=== PATIENT | male | born 1965 | race American Indian/Alaskan Native ===

== ENCOUNTER 2018-12-22 14:28 | Emergency (ER) | payer OTHER ==
[2018-12-22] MEDS ORDERED: LIDOCAINE 1% 20 ML MDV ONE (15:02)
[2018-12-22] MEDS ORDERED: TETANUS & DIPHTHERIA TOX,ADULT 0.5 ML VIAL ONE (15:02)
--- NOTE | 2018-12-22 15:21 | RAD REPORT ---
EXAM DESCRIPTION: CT - Head Brain Wo Cont - 12/22/2018 3:10 pm CLINICAL HISTORY: TRAUMA Trauma, head injury COMPARISON: No comparisons TECHNIQUE: All CT scans are performed using dose optimization technique as appropriate and may inclu de automated exposure control or mA/KV adjustment according to patient size. FINDINGS: No intracranial hemorrhage, hydrocephalus or extra-axial fluid collection.No areas of brai n edema or evidence of midline shift. The paranasal sinuses and mastoids are clear. The calvarium is intact. Left periorbital soft tissue s welling is seen. No vitreous abnormality identified. IMPRESSION: No acute intracranial abnormality.
--- NOTE | 2018-12-22 16:17 | ER ---
Nurse's Notes [facility] Name: Geoff Morrell Age: 53 yrs Sex: Male : 1965 Arrival Date: 12/22/2018 Time: 14:29 Bed 8 Private MD: Diagnosis: Laceration without foreign body of left eyelid and periocular area Presentation: 12/22 14:31 Presenting complaint: Patient states: My surfboard hit me in the left eye. Pt denies la1 vision loss. Denies LOC. Transition of care: patient was not received from another setting of care. Mechanism of Injury: resulted from surf board to eye. Onset of symptoms was December 22, 2018. Risk Assessment: Do you want to hurt yourself or someone else? Patient reports no desire to harm self or others. Initial Sepsis Screen: Does the patient meet any 2 criteria? No. Patient's initial sepsis screen is negative. Does the patient have a suspected source of infection? No. Patient's initial sepsis screen is negative. Care prior to arrival: None. 14:31 Method Of Arrival: Ambulatory la1 14:31 Acuity: JUAQUIN 2 la1 Triage Assessment: 15:25 General: Appears in no apparent distress. uncomfortable, Behavior is calm, cooperative, hj appropriate for age. Pain:. Neuro: Level of Consciousness is awake, alert, obeys commands, Reports headache. Historical: - Allergies: 14:32 No Known Allergies; la1 - PMHx: 14:32 None; la1 - Immunization history:: Adult Immunizations up to date. - Social history:: Smoking status: Patient/guardian denies using tobacco. - Ebola Screening: : No symptoms or risks identified at this time. Screenin:31 Abuse screen: Denies threats or abuse. Denies injuries from another. Nutritional hj screening: No deficits noted. Tuberculosis screening: No symptoms or risk factors identified. Fall Risk None identified. Assessment: 14:50 General: Appears in no apparent distress. uncomfortable, Behavior is calm, cooperative, hj appropriate for age. Pain: Complains of pain in lateral canthus of left eye and medial canthus of left eye and left lower eyelid and left supraorbital ridge and left outer canthus and left upper eyelid. Neuro: Level of Consciousness is awake, alert, obeys commands, Oriented to person, place, time, situation, Appropriate for age. Cardiovascular: Capillary refill < 3 seconds Patient's skin is warm and dry. Respiratory: Airway is patent Respiratory effort is even, unlabored, Respiratory pattern is regular, symmetrical. GI: No signs and/or symptoms were reported involving the gastrointestinal system. : No signs and/or symptoms were reported regarding the genitourinary system. EENT: No signs and/or symptoms were reported regarding the EENT system. Derm: Wound noted lateral canthus of left eye and medial canthus of left eye and left lower eyelid and left supraorbital ridge and left outer canthus and left upper eyelid. Musculoskeletal: No signs and/or symptoms reported regarding the musculoskeletal system. 15:30 Reassessment: Patient and/or family updated on plan of care and expected duration. Pain hj level reassessed. Patient is alert, oriented x 3, equal unlabored respirations, skin warm/dry/pink. provider in room for lac repair;. 16:31 Reassessment: Patient and/or family updated on plan of care and expected duration. Pain hj level reassessed. Patient is alert, oriented x 3, equal unlabored respirations, skin warm/dry/pink. wound care done, dressing applied on the L eye wrapped with raimundo wrap;. Vital Signs: 14:32 BP 153 / 85; Pulse 102; Resp 16; Temp 97.4; Pulse Ox 98% on R/A; Weight 74.84 kg; la1 Height 5 ft. 7 in. (170.18 cm); 16:31 BP 155 / 87; Pulse 92; Resp 18; Pulse Ox 100% on R/A; hj 14:32 Body Mass Index 25.84 (74.84 kg, 170.18 cm) la1 Visual Acuity: 14:46 Left Eye Visual acuity 20/30, Pupil size 4 mm, ; Right Eye Visual acuity 20/30, Pupil iw size 4 mm, ; Both Eyes Visual acuity 20/30; Without Lenses; Lanse Coma Score: 14:31 Eye Response: spontaneous(4). Verbal Response: oriented(5). Motor Response: obeys la1 commands(6). Total: 15. 16:07 Eye Response: spontaneous(4). Verbal Response: oriented(5). Motor Response: obeys jr8 commands(6). Total: 15. ED Course: 14:29 Patient arrived in ED. rg4 14:31 Patient has correct armband on for positive identification. Bed in low position. Call hj light in reach. Side rails up X 1. Adult w/ patient. 14:32 Triage completed. la1 14:33 Arm band placed on left wrist. la1 14:37 Albin Lopes PA is PHCP. jr8 14:37 Jeet Carroll MD is Attending Physician. jr8 15:08 Yosef Conley, RN is Primary Nurse. hj 15:11 CT Head Brain wo Cont In Process Unspecified. EDMS 15:13 CT completed. Patient tolerated procedure well. Patient moved back from CT. bq 16:31 No provider procedures requiring assistance completed. Patient did not have IV access hj during this emergency room visit. Administered Medications: 15:03 Drug: Tetanus-Diphtheria Toxoid Adult 0.5 ml {Sweeper Driver: [employer]. Exp: hj 09/27/2020. Lot #: [id number]. } Route: IM; Site: left deltoid; 15:32 Follow up: Response: No adverse reaction hj 15:33 Drug: Lidocaine (1 %) 1 vials Volume: 20 ml; Route: Infiltration; hj Outcome: 16:16 Discharge ordered by . jr8 16:31 Discharged to home ambulatory, with family. hj 16:31 Condition: stable 16:31 Discharge instructions given to patient, family, Instructed on discharge instructions, follow up and referral plans. medication usage, Demonstrated understanding of instructions, follow-up care, medications, Prescriptions given X 1. 16:32 Patient left the ED. hj Signatures: Dispatcher [employer] EDNM Rylie Oro Irene, RN RN iw Roszak, Josh, PA PA jr8 Phani Orlando RN RN laYosef Barry, Valeri Cleveland RN rg4
--- NOTE | 2018-12-22 16:17 | EDPHYS ---
Physician Documentation [facility] Name: Geoff Morrell Age: 53 yrs Sex: Male : 1965 Arrival Date: 12/22/2018 Time: 14:29 Bed 8 Private MD: ED Physician Jeet Carroll HPI: 12/22 16:07 This 53 yrs old Other Male presents to ER via Ambulatory with complaints of Head jr8 Injury-Adult. 16:07 The patient or guardian reports a laceration, pain, swelling. The complaints affect the jr8 face and left eye. Context of injury: The problem was sustained outdoors, resulted from a direct blow, surf board. Onset: The symptoms/episode began/occurred acutely, today. Associated signs and symptoms: The patient has no apparent associated signs or symptoms, Loss of consciousness: This patient did not experience any loss of consciousness. Severity of symptoms: At their worst the symptoms were moderate, in the emergency department the symptoms are unchanged. The patient has not experienced similar symptoms in the past. The patient has not recently seen a physician. Stated that he fell off of his surf board and it came back in hit him on the left eye and side of face. Denies LOC . Historical: - Allergies: 14:32 No Known Allergies; la1 - PMHx: 14:32 None; la1 - Immunization history:: Adult Immunizations up to date. - Social history:: Smoking status: Patient/guardian denies using tobacco. - Ebola Screening: : No symptoms or risks identified at this time. ROS: 16:07 ENT: Negative for injury, pain, and discharge, Neck: Negative for injury, pain, and jr8 swelling, Cardiovascular: Negative for chest pain, palpitations, and edema, Respiratory: Negative for shortness of breath, cough, wheezing, and pleuritic chest pain, Abdomen/GI: Negative for abdominal pain, nausea, vomiting, diarrhea, and constipation, Back: Negative for injury and pain, MS/Extremity: Negative for injury and deformity, Skin: Negative for injury, rash, and discoloration, Neuro: Negative for headache, weakness, numbness, tingling, and seizure. 16:07 Eyes: Positive for injury or acute deformity, pain, of the left upper eyelid and left outer canthus. Exam: 16:07 Head/Face: Normocephalic, atraumatic. ENT: Nares patent. No nasal discharge, no jr8 septal abnormalities noted. Tympanic membranes are normal and external auditory canals are clear. Oropharynx with no redness, swelling, or masses, exudates, or evidence of obstruction, uvula midline. Mucous membranes moist. Neck: Trachea midline, no thyromegaly or masses palpated, and no cervical lymphadenopathy. Supple, full range of motion without nuchal rigidity, or vertebral point tenderness. No Meningismus. Cardiovascular: Regular rate and rhythm with a normal S1 and S2. No gallops, murmurs, or rubs. Normal PMI, no JVD. No pulse deficits. Respiratory: Lungs have equal breath sounds bilaterally, clear to auscultation and percussion. No rales, rhonchi or wheezes noted. No increased work of breathing, no retractions or nasal flaring. Abdomen/GI: Soft, non-tender, with normal bowel sounds. No distension or tympany. No guarding or rebound. No evidence of tenderness throughout. Back: No spinal tenderness. No costovertebral tenderness. Full range of motion. Skin: Warm, dry with normal turgor. Normal color with no rashes, no lesions, and no evidence of cellulitis. MS/ Extremity: Pulses equal, no cyanosis. Neurovascular intact. Full, normal range of motion. Neuro: Awake and alert, GCS 15, oriented to person, place, time, and situation. Cranial nerves II-XII grossly intact. Motor strength 5/5 in all extremities. Sensory grossly intact. Cerebellar exam normal. Normal gait. 16:07 Eyes: Periorbital structures: swelling, that is moderate, on the left supraorbital ridge, left upper eyelid and left lower eyelid, ecchymosis, that is moderate, on the left supraorbital ridge, left upper eyelid, medial canthus of left eye, lateral canthus of left eye and left lower eyelid, laceration, that is deep, that is linear, on the left supraorbital ridge, left upper eyelid and lateral canthus of left eye, 2 lacerations to specified areas above , Pupils: equal, round, and reactive to light and accomodation, Extraocular movements: intact throughout, Conjunctiva: subconjunctival hemorrhage(s), seen in the left eye, at 4 o'clock, Corneas: are normal, Sclera: no appreciated abnormality, Anterior chamber: normal, Lids and lashes: appear normal, No lateral or medial canthal or lid margin injury noted . Vital Signs: 14:32 BP 153 / 85; Pulse 102; Resp 16; Temp 97.4; Pulse Ox 98% on R/A; Weight 74.84 kg; la1 Height 5 ft. 7 in. (170.18 cm); 16:31 BP 155 / 87; Pulse 92; Resp 18; Pulse Ox 100% on R/A; hj 14:32 Body Mass Index 25.84 (74.84 kg, 170.18 cm) la1 Chinmay Coma Score: 14:31 Eye Response: spontaneous(4). Verbal Response: oriented(5). Motor Response: obeys la1 commands(6). Total: 15. 16:07 Eye Response: spontaneous(4). Verbal Response: oriented(5). Motor Response: obeys jr8 commands(6). Total: 15. Visual Acuity: 14:46 Left Eye Visual acuity 20/30, Pupil size 4 mm, ; Right Eye Visual acuity 20/30, Pupil iw size 4 mm, ; Both Eyes Visual acuity 20/30; Without Lenses; Laceration: 16:07 Wound Repair of 3cm ( 1.2in ) subcutaneous laceration to left upper eyelid. Linear jr8 shaped.. Distal neuro/vascular/tendon intact. Anesthesia: Local anesthetic administered with 3 mls of 1% lidocaine. Wound prep: Moderate cleansing with betadine, Wound irrigation with saline, Wound explored extensively. Skin closed with 6 6-0 Prolene using interrupted sutures and sterile technique. Patient tolerated well. 16:07 Wound Repair of 2.5cm ( 1.0in ) subcutaneous laceration to left outer eye . Irregularly jr8 shaped.. Distal neuro/vascular/tendon intact. Anesthesia: Local anesthetic administered with 2 mls of 1% lidocaine. Wound prep: Extensive cleansing with betadine, Wound irrigation with saline, Wound explored extensively. Skin closed with 5 6-0 Prolene using interrupted sutures and sterile technique. Patient tolerated well. MDM: 14:37 Patient medically screened. jr8 16:07 Data reviewed: vital signs, nurses notes, radiologic studies, CT scan, and as a result, jr8 I will discharge patient. Data interpreted: Pulse oximetry: on room air is 98 %. Interpretation: normal. Counseling: I had a detailed discussion with the patient and/or guardian regarding: the historical points, exam findings, and any diagnostic results supporting the discharge/admit diagnosis, the need for outpatient follow up, a family practitioner, to return to the emergency department if symptoms worsen or persist or if there are any questions or concerns that arise at home. 12/22 14:44 Order name: CT Head Brain wo Cont; Complete Time: 15:29 [facility] 12/22 14:44 Order name: Dressing - Wound; Complete Time: 15:33 [facility] 12/22 14:44 Order name: Gloves, Sterile; Complete Time: 15:09 [facility] 12/22 14:44 Order name: Setup Suture Tray; Complete Time: 15: Administered Medications: 15:03 Drug: Tetanus-Diphtheria Toxoid Adult 0.5 ml {Program Attendant: [employer]. Exp: 09/27/2020. Lot #: [id number]. } Route: IM; Site: left deltoid; 15:32 Follow up: Response: No adverse reaction 15:33 Drug: Lidocaine (1 %) 1 vials Volume: 20 ml; Route: Infiltration; Disposition: 12/22/18 16:16 Discharged to Home. Impression: Laceration without foreign body of left eyelid and periocular area. - Condition is Stable. - Discharge Instructions: Facial Laceration. - Prescriptions for Cipro 500 mg Oral Tablet - take 1 tablet by ORAL route every 12 hours for 7 days; 14 tablet. - Medication Reconciliation Form, Thank You Letter, Antibiotic Education, Prescription Opioid Use form. - Follow up: Private Physician; When: 5 - 6 days; Reason: Wound Recheck, Recheck today's complaints, Continuance of care, Staple/Suture removal, Re-evaluation by your physician. - Problem is new. - Symptoms have improved. Addendum: 12/25/2018 08:47 Co-signature as Attending Physician, Jeet Carroll MD I agree with the assessment and c qualres plan of care. Signatures: Dispatcher [employer] Jeet Mccauley MD MD cha Roszak, Josh, PA PA jr8 Phani Orlando RN RN la1 Yosef Conley RN RN hj Corrections: (The following items were deleted from the chart) 12/22 16:32 16:16 12/22/2018 16:16 Discharged to Home. Impression: Laceration without foreign body hj of left eyelid and periocular area. Condition is Stable. Forms are Medication Reconciliation Form, Thank You Letter, Antibiotic Education, Prescription Opioid Use. Follow up: Private Physician; When: 5 - 6 days; Reason: Wound Recheck, Recheck today's complaints, Continuance of care, Staple/Suture removal, Re-evaluation by your physician. Problem is new. Symptoms have improved. jr8
== END 2018-12-22 16:32 | disposition home or self-care (01) ==
LOC: ER 14:28
PROC: 08QPXZZ Repair Left Upper Eyelid, External Approach (ICD-10-PCS; principal; 2018-12-22)
DX: S01.112A Laceration without foreign body of left eyelid and periocular area, initial encounter (principal); W20.8XXA Other cause of strike by thrown, projected or falling object, initial encounter; Y93.18 Activity, surfing, windsurfing and boogie boarding; Z23 Encounter for immunization
CPT/HCPCS: 70450; 90471; 90714; 99284